=== PATIENT | female | born 1960 | race African-American/Black ===

== ENCOUNTER 2020-10-15 14:45 | Emergency (ER) | payer MEDICARE, OTHER ==
[~2020-10-15] VITALS: Ht 149.9 cm; Wt 86.2 kg
--- NOTE | 2020-10-15 15:07 | NUR ---
PATIENT BROTH ER VIA , HERE FOR MEDICAL CLEARANCE FOR VOLUNTARY ADMISSION AT [facility], PATIENT C/O DEPRESSION, RECENTLY QUIT SMOKING TWO WEEKS AGO. WILL MONITORING.
[2020-10-15 15:47] LABS: BASOPHILS % (AUTO) 0.5 % (0.0-2.0); EOSINOPHILS % (AUTO) 3.3 % (0.0-6.0); HEMATOCRIT 38 % (33-45); HEMOGLOBIN 12.6 g/dL (11.5-14.8); LYMPHOCYTES # (AUTO) 3.1 /CMM (0.8-4.8); LYMPHOCYTES % (AUTO) 49.6 % (20.0-44.0); MEAN CORPUSCULAR HGB CONC 33 g/dl (31.0-36.0); MEAN CORPUSCULAR VOLUME 90 fL (82-100); MONOCYTES # (AUTO) 0.4 /CMM (0.1-1.30); MONOCYTES % (AUTO) 6.9 % (2.0-12.0); NEUTROPHILS # (AUTO) 2.5 /CMM (1.8-8.9); NEUTROPHILS % (AUTO) 39.7 % (43.0-81.0); PLATELET COUNT (AUTO) 225 /CMM (150-450); RED BLOOD CELL COUNT(AUTO) 4.23 MIL/uL (4.0-5.2); WHITE BLOOD COUNT (AUTO) 6.3 K/uL (4.3-11.0)
[2020-10-15 16:02] LABS: CALCIUM, SERUM 8.9 mg/dL (8.5-10.1); CARBON DIOXIDE 31 mmol/L (21-32); CHLORIDE 108 mmol/L (98-107); CREATININE 0.6 mg/dL (0.6-1.3); GLUCOSE 89 mg/dL (74-106); POTASSIUM 4.1 mmol/L (3.5-5.1); SODIUM SERUM 142 mmol/L (136-145); UREA NITROGEN, BLOOD 10 mg/dL (7-18)
[2020-10-15 16:08] LABS: BILIRUBIN,URINE NEGATIVE (NEGATIVE); COLOR,URINE YELLOW (YELLOW); LEUKOCYTE ESTERASE ,URINE NEGATIVE (NEGATIVE); NITRITE, URINE NEGATIVE (NEGATIVE); PROTEIN,URINE NEGATIVE (NEGATIVE); UGLUCOSE NEGATIVE (NEGATIVE); UROBILINOGEN,URINE 0.2 EU/dL (0.2)
[2020-10-15 16:08] LABS: ALANINE AMINOTRANSFERASE 23 U/L (12-78); ALBUMIN 3.6 g/dL (3.4-5.0); ALCOHOL, BLOOD < 3 mg/dL (0-0); ALKALINE PHOSPHATASE 114 U/L (46-116); ASPARTATE AMINOTRANSFERASE 12 U/L (15-37); BILIRUBIN,DIRECT 0.1 mg/dL (0.0-0.2); BILIRUBIN,TOTAL 0.3 mg/dL (0.2-1.0); TOTAL PROTEIN, SERUM 6.9 g/dL (6.4-8.2)
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
--- NOTE | 2020-10-15 16:44 | NUR ---
covid swab done and sent to the lab
[2020-10-15] MEDS ORDERED: NAPROXEN 250 MG TABLET ONE (17:16)
--- NOTE | 2020-10-15 17:21 | NUR ---
naproxen 500 mg po given for back pain and both shoulder pain 5/10.
[2020-10-15] MEDS ORDERED: NAPROXEN 250 MG TABLET PO ONE (17:30)
--- NOTE | 2020-10-15 17:57 | NUR ---
LAB CALLED PT COVID RESULT NEGATIVE (-)
--- NOTE | 2020-10-15 18:18 | NUR ---
CLINICALS FAXED TO [facility] FOR REVIEW
[2020-10-15] MEDS ORDERED: ACETAMINOPHEN ES 500 MG TABLET ONE (20:34)
[2020-10-15] MEDS ORDERED: ACETAMINOPHEN ES 500 MG TABLET PO ONE (21:00)
--- NOTE | 2020-10-15 21:30 | NUR ---
TRANSFER INFO: SATISH FROST ACCEPTED BY DR WEBER TO UNIT 2, RN FOR REPORT [phone], REQUESTING TRANSFER AND REPORT NO EARLIER THAN 4231 PER COREY.
--- NOTE | 2020-10-15 21:45 | NUR ---
LESLIE MACIEL ARRANGED BLS TO [facility] TRIP#[id number] AWAITING CALL BACK WITH TILA
[2020-10-15 23:52] VITALS: BP 141/79
--- NOTE | 2020-10-15 23:53 | NUR ---
REPORT GIVEN TO VAISHALI SANFORD FROM [facility]
== END 2020-10-15 23:53 ==
LOC: ER 14:45
DX: F99 Mental disorder, not otherwise specified (principal); R45.851 Suicidal ideations; Z20.822 Contact with and (suspected) exposure to COVID-19
CPT/HCPCS: 36415; 80048-TC; 80076-TC; 85025-TC; C9803; G0480